=== PATIENT | female | born 1935 | race Caucasian/White ===

== ENCOUNTER → 2016-09-23 | Day surgery (SDC) | payer OTHER ==
[2016-09-03 13:06] VITALS: Ht 167.6 cm; Wt 111.4 kg
[~2016-09-23] VITALS: Ht 167.6 cm; Wt 111.4 kg
[~2016-09-23] MED LIST: 500ML BSS 0.3ML EPI 1:1000PF IRRIG ONE; ACETAMINOPHEN 325 MG TAB PO PRN; AMVISC PLUS 0.8ML SYRINGE INT OCU ONE; ATROPINE SULFATE 0.1 MG/ML 5ML SYR IV PRN; AcetaZOLAMIDE 250 MG TAB PO SCH; BETAXOLOL HCL 0.25% OP SUSP PER DROP CHARGE OPL SCH; BRIMONIDINE TART 0.2% OP SOLN PER DROP CHARGE ONE; BSS FLUSH ONE; CHOL2000 PO; CLB/200 PO; ENAL1TAB31 PO; ENDOCOAT 0.85ML SYRINGE INT OCU ONE; EpHEDrine SULFATE INJ 50 MG/ML AMP IV PRN; EpINEphrine INJ 1MG/ML AMP 1 MG/ML AMP ONE; HYDR12.55 PO; IBUP1CAP9 PO; LACTATED RINGER'S 1000ML 500 ML IV SCH; LIDOCAINE 4% OP SOLN DROP CHARGE ONE; LIDOCAINE 4% OP SOLN DROP CHARGE OPL SCH; LIDOCAINE HCL 1% MPF 2 ML VIAL ONE; MIDAZOLAM HCL 1 MG/ML 2ML VIAL ONE; MIX: 4ML BSS 1ML EPI 1:1000 PF INSTIL ONE; MOXIFLOXACIN OPH SOLN PER DROP CHARGE ONE; MULT-506 PO; MULTCAP36 PO; OCUCOAT 1 ML SOLN IO ONE; OMEG10007 PO; POVIDONE-IODINE OP SOLN 30 ML BTL ONE; PROPARACAINE 0.5% OP SOLN PER DROP CHARGE OPL SCH; TOBRAMYCIN/DEXAMETHASONE OPH OINT PER APPLN CHARGE ONE
--- NOTE | 2016-09-23 10:37 | History & Physical Bridge - SC ---
H&P Re-Evaluation Bridge Note: I have examined the patient, reviewed the History & Physical and in the interval since the performance of the History & Physical I have noted the following changes of clinical significance: No changes noted
[2016-09-23] MEDS: PHENYLEPHRINE HCL 2.5% OP SOLN PER DROP CHARGE OPL SCH ×2 (11:13→11:18)
[2016-09-23] MEDS: TROPICAMIDE 1% OP SOLN PER DROP CHARGE OPL SCH ×2 (11:14→11:19)
[2016-09-23] MEDS: CYCLOPENTOLATE HCL 1% OP SOLN PER DROP CHARGE OPL SCH ×2 (11:15→11:20)
[2016-09-23] MEDS: MOXIFLOXACIN OPH SOLN PER DROP CHARGE OPL SCH ×2 (11:16→11:33)
--- NOTE | 2016-09-23 12:00 | Discharge Instructions-SurgCtr ---
Discharge Instructions Date of Service Sep 23, 2016. Visit Reason for Visit: Cataract Left Eye Discharge Discharge Diagnosis / Problem: lens implant left eye Discharge Goals Goal(s): Improve function Activity Recommendations Activity Limitations: resume your previous activity Lifting Limitations: no more than 10 pounds Exercise/Sports Limitations: gradually increase as tolerated May Resume Sexual Activity: when tolerated Shower/Bathe: tomorrow Driving or Machine Use: resume 1 day after discharge Anesthesia . Post Anesthesia Instructions: If you have had General Anesthesia or IV Sedation: * Do not drive today. * Resume driving when surgeon permits. * Do not make important decisions or sign legal documents today. * Call surgeon for: 1. Temperature elevations greater than 101 degrees F. 2. Uncontrollable pain. 3. Excessive bleeding. 4. Persistent nausea and vomiting. 5. Medication intolerance (nausea, vomiting or rash). * For nausea and vomiting use only clear liquids such as: tea, soda, bouillon until nausea subsides, then gradually increase diet as tolerated. * If you have any concerns or questions, call your surgeon's office. If physician is unavailable and it is an emergency, call 911 or go to the nearest emergency room. . Instructions / Follow-Up Instructions / Follow-Up ACTIVITY RECOMMENDATIONS: * Light activities. * Mild irritation and blurred vision are common for the first few days. * You may walk outside, read, watch television. * Redness around the white part of the eye is common. MEDICATIONS: Resume previous medications unless instructed otherwise by your surgeon. * Take white Diamox (Acetazolamide) tablet at 3 pm today. Start all eye drops at 3 pm today: * Eye drops (today and tomorrow): Prednisone - one drop in operative eye every 3 hours while awake Ofloxacin - one drop in operative eye every 3 hours while awake SPECIAL CARE INSTRUCTIONS: * Tape plastic shield over eye to sleep at night. Call your doctor at with any concerns or problems. FOLLOW UP VISIT: Follow-up with Dr Ramírez at [facility] as scheduled. Diet Recommendations Home Diet: no limitations Procedures Procedures Performed: Left Cataract Phacoemulsification With Intraocular Lens Implant Pending Studies Studies pending at discharge: no Medical Emergencies . Who to Call and When: Medical Emergencies: If at any time you feel your situation is an emergency, please call 911 immediately. . Non-Emergent Contact Non-Emergency issues call your: Press Operator Helper Call Non-Emergent contact if: your pain is not controlled [phone] . . "Provider Documentation" section prepared by Memo Ramírez. .
--- NOTE | 2016-09-23 12:02 | [facility] Operative Report ---
Operative Report Date of Service Sep 23, 2016. Operative Report 1. PREOPERATIVE DIAGNOSIS: Senile nuclear cataract, left eye. 2. POSTOPERATIVE DIAGNOSIS: Senile nuclear cataract, left eye. 3. PROCEDURE: Phacoemulsification of left cataract with posterior chamber lens implant, type Bausch [employer] Lomb, model MX60, power +28.50 diopters. ANESTHESIA: Local standby. SURGEON: Dr. Ramírez. COMPLICATIONS: None. OPERATING TIME: 10 minutes. 4. OPERATION AND FINDINGS: DESCRIPTION OF PROCEDURE: The left pupil was dilated. The anesthetic was administered using a topical technique. The left eye was prepped and draped. A speculum was placed. A clear corneal incision was formed. The chamber was filled with Amvisc Plus and Endocoat. Epinephrine solution was used. A paracentesis was placed. A capsulorrhexis was performed. The nucleus was hydrodissected. A dense lens was removed with phacoemulsification. Time was 7.45 seconds. The aspiration unit was used to remove the cortex. The capsule was filled with Amvisc Plus. The lens implant was folded and placed into the capsule. The incision was hydrated. The Amvisc was aspirated. The wound was secure. The chamber was deep. The pupil was round. Brimonidine, TobraDex ointment and Vigamox solution were placed. The speculum was removed. The patient was returned to the Recovery Room in stable condition. I attest to the content of the Intraoperative Record and any orders documented therein. Any exceptions are noted below. The scribe's documentation has been prepared in my presence, under my direction and personally reviewed by me in its entirety. I confirm that the note above accurately reflects all work, treatment, procedures, and medical decision making performed by me. I personally scribed for Memo Ramíerz M.D. ([email or web address]) on 09/23/16 at 12:02. Electronically submitted by Karli Carlton ([facility]).
--- NOTE | 2016-09-23 12:28 | Anesthesia Progress Nt - [facility] ---
Anesthesia Post Op Note Date & Time Sep 23, 2016 at 12:28 Vital Signs Pain Intensity: 0 Vital Signs Past 12 Hours Date Time Temp Pulse Resp B/P (MAP) Pulse Ox O2 Delivery O2 Flow Rate FiO2 09/23/16 12:04 36.3 45 16 151/54 (86) 96 Room Air 09/23/16 11:00 37.0 58 22 173/84 (113) 98 Notes Mental Status: alert / awake / arousable, participated in evaluation Pt Amnestic to Procedure: Yes Nausea / Vomiting: adequately controlled Pain: adequately controlled Airway Patency, RR, SpO2: stable & adequate BP & HR: stable & adequate Hydration State: stable & adequate Anesthetic Complications: no major complications apparent
[2016-09-23 12:35] VITALS: BP 177/85; PULSE 55; O2SAT 96
== END | disposition home or self-care (01) ==
LOC: X.SURG 10:29
PROVIDERS: ATTEND Specialist
DX: H25.12 Age-related nuclear cataract, left eye (principal); I10 Essential (primary) hypertension; G47.33 Obstructive sleep apnea (adult) (pediatric); M19.90 Unspecified osteoarthritis, unspecified site; E66.9 Obesity, unspecified; Z90.49 Acquired absence of other specified parts of digestive tract; Z96.653 Presence of artificial knee joint, bilateral; Z90.89 Acquired absence of other organs; Z87.442 Personal history of urinary calculi; Z85.820 Personal history of malignant melanoma of skin

== ENCOUNTER 2018-09-14 10:52 | Observation (INO) ==
[~2018-09-14 10:52] MED LIST changes: -500ML BSS 0.3ML EPI 1:1000PF IRRIG ONE; -ACETAMINOPHEN 325 MG TAB PO PRN; -AMVISC PLUS 0.8ML SYRINGE INT OCU ONE; -ATROPINE SULFATE 0.1 MG/ML 5ML SYR IV PRN; -AcetaZOLAMIDE 250 MG TAB PO SCH; -BETAXOLOL HCL 0.25% OP SUSP PER DROP CHARGE OPL SCH; -BRIMONIDINE TART 0.2% OP SOLN PER DROP CHARGE ONE; -BSS FLUSH ONE; -CHOL2000 PO; -CLB/200 PO; +CLINDAMYCIN 600 MG/54 ML BAG IV SCH; -ENAL1TAB31 PO; -ENDOCOAT 0.85ML SYRINGE INT OCU ONE; -EpHEDrine SULFATE INJ 50 MG/ML AMP IV PRN; -EpINEphrine INJ 1MG/ML AMP 1 MG/ML AMP ONE; -HYDR12.55 PO; -IBUP1CAP9 PO; -LACTATED RINGER'S 1000ML 500 ML IV SCH; -LIDOCAINE 4% OP SOLN DROP CHARGE ONE; -LIDOCAINE 4% OP SOLN DROP CHARGE OPL SCH; -LIDOCAINE HCL 1% MPF 2 ML VIAL ONE; +LR 15ML/HR IV SCH; -MIDAZOLAM HCL 1 MG/ML 2ML VIAL ONE; -MIX: 4ML BSS 1ML EPI 1:1000 PF INSTIL ONE; -MOXIFLOXACIN OPH SOLN PER DROP CHARGE ONE; -MULT-506 PO; -MULTCAP36 PO; -OCUCOAT 1 ML SOLN IO ONE; -OMEG10007 PO; -POVIDONE-IODINE OP SOLN 30 ML BTL ONE; -PROPARACAINE 0.5% OP SOLN PER DROP CHARGE OPL SCH; -TOBRAMYCIN/DEXAMETHASONE OPH OINT PER APPLN CHARGE ONE
--- NOTE | 2018-09-14 11:39 | History & Physical Bridge Note ---
Date of Service September 14, 2018 History & Physical Bridge Note I have examined the patient, reviewed the History & Physical and in the interval since the performance of the History & Physical I have noted the following changes of clinical significance: no changes noted
--- NOTE | 2018-09-14 11:40 | Pre Anesthesia Assessment ---
Date of Service September 14, 2018 Pre Sedation Assessment Cardiovascular RRR, no murmur, no edema Respiratory normal respiratory effort, lungs clear to auscultation Pre-Sedation Airway Assessment Smoking Status: Never smoker Hx Sleep Apnea: No Hx Difficult Intubation: No Short, Thick Neck: No Thyromental Distance: < 3.5 Finger Breadths Mallampati Class: II ASA: ASA3 NPO Status Date of Last Intake of Fluids: 09/13/18 Date of Last Intake of Solid Food: 09/13/18 Procedure Planning Contraindications for Sedation: none Current Medications Reviewed: Yes Notes The planned sedation has been discussed with the patient. Informed Consent was obtained. I have identified the patient, determined the appropriateness of sedation and have assessed the patient immediately prior to the procedure. All medicine(s) and interventions are by my order.
[2018-09-14] MEDS ORDERED: BACITRACIN INJ 50,000 UNIT VIAL ONE (15:09)
[2018-09-14] MEDS ORDERED: BUPIVACAINE 0.5 % 5 MG/1 ML PF 10ML VIAL ONE (15:09)
[2018-09-14] MEDS ORDERED: LIDOCAINE HCL 1% 20 ML VIAL ONE (15:09)
[2018-09-14] MEDS ORDERED: MIDAZOLAM HCL 5 MG/ML 1 ML VIAL ONE (15:09)
[2018-09-14] MEDS ORDERED: fentaNYL citrate 100 MCG/2 ML VIAL ONE (15:09)
--- NOTE | 2018-09-14 16:14 | Operative Report ---
Post Operative Report Pre & Post Diagnosis Pre: TBS Post: Same Operation Date: 09/14/18 13:00 <No data on this case meets the specified criteria> Procedure Operation Date: 09/14/18 13:00 Actual Procedures p Pacer with A/V Leads (Dual)(Left) - Estelle Ramírez DO s Venogram, Unilateral(Not Applicable) - Estelle Ramírez DO Surgeon Estelle Ramírez DO Surgical Instrument Repair Specialist none Estimated Blood Loss 25 Findings Consistent with Post-Op Diagnosis Specimens none Description of Procedure see official report I attest to the content of the Intraoperative Record and any orders documented therein. Any exceptions are noted below.
--- NOTE | 2018-09-14 16:15 | Post Anesthesia Assessment ---
Date of Service September 14, 2018 Post Sedation Assessment Vital Signs Temp Pulse Resp BP Pulse Ox 09/14/18 12:04 36.5 C 70 20 123/70 94 Recovery Score Activity: Moves 4 extremities Respiration: Deep Breath/Cough Circulation: +/-20% PreAnes Value Consciousness: Fully Awake Oxygen Saturation: > 92% On Room Air Discharge Sedation Level of Care: Fast Track Phase II Post Sedation Plan On clinical assessment, the patient appears to have tolerated the sedation without complications. Patient is recovering as anticipated. Patient will continue to be monitored by nursing and may be discharged when sedation discharge criteria are met per below protocol. Upon Completions of procedure and additional 15 minutes continue every 5 minute vital signs and the P.A.R. score; then discharge to a Phase I or Fast Track to Phase II per the following guidelines: * Discharge Patient to appropriate Phase II area if PAR is 8 or greater or return to pre- procedure baseline. The post - procedure orders will be as directed. * If PAR score is less than 8 or not return to pre-procedure baseline then patient will follow Phase I monitoring till PAR is reached for Phase II. The Phase I may be done in procedure room or may call to secure a Phase I area. * If naloxone or flumazenil are used for reversal, hold in Phase I for continued monitoring from when last reversal dose was given for a minimum of 60 minutes or longer pending the nurse and/or physician discretion of patient condition before discharge to Phase II. Please call the Sedation Physician to re-evaluate and complete post-note for discharge to Phase II area. Do NOT discharge from procedure sedation or Phase 1 until post- sedation evaluation note is complete by procedure /sedation MD Sedation Discharge Instructions to be given to the patient at discharge to home.
[2018-09-14] MEDS ORDERED: ACETAMINOPHEN 325 MG TAB PO PRN (16:16)
[2018-09-14] MEDS ORDERED: ACETAMINOPHEN 500 MG TAB PO PRN (16:17)
[2018-09-14 17:06] LABS: Hematocrit (blood only) 41.4 % (37-47); Hemoglobin 13.5 g/dL (12.0-16.0); Mean Corpuscular Hgb Conc 32.6 g/dL (32-36); Mean Corpuscular Volume 90.8 fL (80-100); Mean Platelet Volume 10.1 fL (7.4-10.4); Platelet Count 223 K/uL (130-400); RDW Coefficient of Variation 15.8 % (11.5-14.5); RDW Standard Deviation 52.3 fL (36.4-46.3); Red Blood Count 4.56 M/uL (4.2-5.4); White Blood Count 5.76 K/uL (4.8-10.8)
[2018-09-14] MEDS: OXYCODONE/ACETAMINOPHEN 5mg/325mg TAB PO PRN ×2 (17:24→23:34)
[2018-09-14 17:38] LABS: Creatinine Clr Calc Pharmacy 64.7 ml/min; Est GFR (African American) 74.5; Est GFR (Non-African American) 64.3
[2018-09-14 17:41] LABS: Bilirubin Direct 0.2 mg/dl (0-0.2)
[2018-09-14] MEDS: METOPROLOL SUCC 25MG EXT REL TAB PO SCH (18:19)
[2018-09-14] MEDS: OMEGA-3 (PURIFIED FISH OIL) 1 GM CAP PO SCH (20:58)
[2018-09-14] MEDS: ENALAPRIL MALEATE 10 MG TAB PO SCH (20:59)
[2018-09-15] MEDS: OMEGA-3 (PURIFIED FISH OIL) 1 GM CAP PO SCH (08:13)
[2018-09-15] MEDS: METOPROLOL SUCC 25MG EXT REL TAB PO SCH (08:13)
[2018-09-15] MEDS: OXYCODONE/ACETAMINOPHEN 5mg/325mg TAB PO PRN (08:13)
[2018-09-15] MEDS: ENALAPRIL MALEATE 10 MG TAB PO SCH (08:13)
[2018-09-15] MEDS ORDERED: APIXABAN 5 MG TABLET PO SCH (09:00)
[2018-09-15] MEDS ORDERED: MULTIVITAMIN TAB PO SCH (09:00)
[2018-09-15] MEDS ORDERED: CeleBREX 200 MG CAP PO SCH (09:00)
[2018-09-15] MEDS ORDERED: hydroCHLOROthiazide 25 MG TAB PO SCH (09:00)
[2018-09-15] MEDS ORDERED: CHOLECALCIFEROL 1,000 UNITS TAB PO SCH (09:00)
--- NOTE | 2018-09-15 09:13 | XRay Report ---
XR chest 2V routine CLINICAL HISTORY: 83 years-old Female presenting with post implant. TECHNIQUE: PA and lateral views of the chest were obtained. COMPARISON: 01/11/2016. FINDINGS: Interval placement of a left subclavian pacer with leads in the right atrium and right ventricular ap ex. No retained surgical material. Leads are appropriately positioned. Atherosclerosis of the aortic arch. Cardiac silhouette enlarged. Mild pulmonary vascular prominence. Diffusely coarsened lung adolfo ngs. No focal lung opacity. No pleural effusion or pneumothorax. Osteopenia suspected. Moderate to se theo compression deformity at the thoracolumbar junction. Suspected anterior dislocation of the right humeral head, which may be chronic. Advanced degenerative changes of the left glenohumeral joint. Hi atal hernia. IMPRESSION: 1. Appropriately positioned left subclavian 2-lead pacer. No pneumothorax. 2. Cardiomegaly. 3. 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 Correlate clinically. 4. Moderate to severe compression fracture of one of the vertebral body levels at the thoracolumbar junction. Correlate clinically for point tenderness as this is age-indeterminate. 5. Hiatal hernia. Electronically signed by: Alberto Ware M.D. 09/15/2018 9:12 AM
--- NOTE | 2018-09-24 05:48 | Operative Report ---
DATE OF OPERATION: 09/14/2018 DATE OF PROCEDURE: 09/14/2018 PREOPERATIVE DIAGNOSIS: Tachybrady syndrome. POSTOPERATIVE DIAGNOSIS: Tachybrady syndrome. PROCEDURE: Dual chamber rate responsive permanent pacemaker under fluoroscopic guidance along with peripheral venogram. SURGEON: Estelle Ramírez DO ASSISTANTS: None. ANESTHESIA: Monitored conscious sedation administered under my supervision by Evelyn Wasserman. Start time 1508 and end time 1607. A total of 4 mg of Versed, 100 mcg of fentanyl. INTRAVENOUS FLUIDS: 67 mL during the procedure, but she got 450 mL in p.m., same day surgery. ANTIBIOTICS: 600 mg of clindamycin. BLOOD LOSS: 20 mL. URINE OUTPUT: Not applicable. SPECIMENS: None. FINDINGS: See below. DRAINS: None. INDICATIONS: This is an 83-year-old female with past medical history for paroxysmal atrial fibrillation diagnosed 06/2018 s/p LEONORA guided DCCV on eliquis, HTN, NAIN on CPAP, Morbid obesity. Pt with evidence for TBS so recommended a dual chamber pacemaker. CONSENT: Consent was obtained prior to the patient going into electrophysiology lab. The patient was informed of the risks, benefits and alternative of the procedure. Risks include but not limited to sudden cardiac , cardiac arrhythmias, cerebrovascular accident, myocardial infarction, injury to the blood vessels, chamber of the heart, lung, bleeding, and infection. The patient understood these risks and agreed to the procedure as planned. Informed consent was obtained. DESCRIPTION OF THE PROCEDURE: The patient was brought into electrophysiology lab in a fasting state. A timeout was performed to ensure patient identity and procedure correctly. She received prophylactic antibiotics prior to incision. She was prepped and draped over the left infraclavicular space in normal surgical standard fashion. Monitored conscious sedation was given throughout the procedure for patient's comfort level. [place] precautions were maintained throughout the procedure. A 10 mL of 1% lidocaine, bupivacaine mixture were given in the left deltopectoral groove. Incision was made in left deltopectoral groove. Blunt dissection was performed down to identify the cephalic vein; however, none could be identified, so peripheral venogram using 10 mL of IV contrast balloon with 10 mL of saline followed by a 20 mL flush was performed to identify the axillary vein and venous access was obtained through an axillary stick. A guidewire was inserted without any resistance. An 8-Algerian sheath was inserted over the guidewire without any resistance. Dilator was removed and a second guidewire was inserted through the 8-Algerian sheath to allow for retained venous access. Sheath was removed, flushed and reinserted over the dilator and then it was reinserted over one of the guidewires. The guidewire and dilator were removed. Then, the right ventricular lead was advanced into right ventricle and positioned in intraventricular apex under fluoroscopic guidance. There was adequate pacing and sensing thresholds and no diaphragmatic stimulation with high output pacing. The 8-Algerian sheath was peeled away and lead was fixated to pectoralis muscle using 0 silk suture. A second 8-Algerian sheath was inserted over the retained guidewire without any resistance. The guidewire and dilator were removed. The right atrial lead was then advanced into right atrium and positioned interatrial appendage under fluoroscopic guidance. There was adequate sensing of the fib waves and no diaphragmatic stimulation with high output pacing. The 8-Algerian sheath was peeled away and lead was fixated to pectoralis muscle using 0 silk suture. There was bleeding from the venous access site, so a pursestring using a 2-[address] needle was placed. Then using blunt dissection over the pectoralis muscle within the pectoralis fascia, a pacemaker pocket was created. The pocket was flushed with copious amounts of bacitracin saline wash and inspected for hemostasis. The pulse generator was then attached to the leads, making sure that the pins were in appropriate position, passed set screws and set screws were tightened. Pulse generator was then placed in the Tyrx pouch followed then by being placed in the pocket, making sure that the leads were lying flat beneath the device. A stay stitch using 0 silk suture was used to secure this pectoralis muscle. Eduardo stat was placed in the pocket as patient is going back on Coumadin. Then the incision was closed in 3-layer fashion with 2-0 Vicryl interrupted suture followed by 3-0 Vicryl interrupted suture followed by a 4-0 Monocryl running stitch and Dermabond was applied followed then by a pressure dressing. EQUIPMENT: 1. Pulse generator is a Medtronic Nicole XT DR DAVIE Araiza [id number], serial #[id number]. 2. Tyrx pouch reference CMR M6122, lot #[id number], expiration 09/28/2018. 3. Right atrial lead, Medtronic 5076-52 cm, serial #[id number]. 4. Right ventricular lead, Medtronic 5076-58 cm, serial #[id number]. INTRAOPERATIVE TESTIN. Right atrial lead, fib waves 0.9 millivolts, impedance 570 ohms, threshold is not performed as the patient is in AFib. 2. Right ventricular lead: R-waves 8 millivolts, impedance 836 ohms, threshold 0.4 volts at 0.4 milliamps. FINAL PARAMETERS THROUGH THE DEVICE: 1. Right atrial lead: Fib waves 0.9 millivolts, impedance 551 ohms, again no threshold testing as patient is in AFib. 2. Right ventricular lead: R-wave 5.9 millivolts, impedance 836 ohms, threshold 0.5 volts at 0.4 milliseconds. FINAL PARAMETERS: 1. MVP-R 60/130, right atrial amplitude 1.5 volts, pulse width 0.4 milliseconds, sensitivity 0.15 millivolts. 2. Right ventricular amplitude 3.5 volts, pulse width 0.4 milliseconds, sensitivity 1.2 millivolts. IMPRESSION: Successful implantation of a dual chamber rate responsive permanent pacemaker under fluoroscopic guidance with peripheral venogram secondary to tachybrady syndrome. PLAN: Monitor patient overnight, 12-lead ECG, chest x-ray. She is not allowed to lift left elbow or left shoulder for 1 month. She cannot lift more than 10 pounds with the left arm for 2 weeks. She can shower in 2 days, let water run over incision, do not scrub it. She should follow up in our [facility] on Wednesday09/23/2018 for device and wound check. She can restart her anticoagulation. I attest to the content of the Intraoperative Record and any orders documented therein. Any exceptions are noted below. STANLEY
--- NOTE | 2018-09-27 22:18 | Discharge Summary ---
Date of Service September 15, 2018 Admission HPI Per Admitting Provider Pt admitted for ppm due to TBS Admission Exam Per Admitting Provider aaox3, NAD NC/AT, EOMI Supple No JVD Nrl S1/S2, No murmur CTA b/l no w/r/r soft nt/nd no LE edema b/l skin intact no focal deficits Principal Diagnosis TBS s/p dual chamber ppm Discharge Exam aaox3, NAD NC/AT, EOMI Supple No JVD Nrl S1/S2, No murmur CTA b/l no w/r/r soft nt/nd no LE edema b/l skin intact no focal deficits left pectoral incision intact, no hematoma mild ecchymosis Discharge Data Allergies Allergy/AdvReac Type Severity Reaction Status Date / Time amoxicillin Allergy Unknown RASH Verified 09/14/18 11:44 meloxicam Allergy Unknown HIVES Verified 09/14/18 11:44 amlodipine AdvReac Unknown BLE Verified 09/14/18 11:44 SWELLING alendronate sodium AdvReac Verified 09/14/18 12:32 [From Fosamax] Procedures Performed Operation Date: 09/14/18 13:00 Actual Procedures p Pacer with A/V Leads (Dual)(Left) - Estelle Ramírez DO s Venogram, Unilateral(Not Applicable) - Estelle Ramírez DO Ordered Studies CXR: No PTX, leads in place ECG: FIBERGLASS SKI MAKER PPM Interrogation: Normal function; lead testing stable from implant 09/14/18 07:30 EP Lab Images for PACS ONCE Hospital Course (1) Tachy-yovani syndrome: Total Time Total Time Spent Total Time Spent (In Minutes): 30 Total Time Includes: Examination of the Patient, Discharge Planning, Medication Reconciliation and Other Discharge Plan Discharge Items Patient Disposition: Home - Self-Care Reason For Visit: DUAL CHAMBER PACEMAKER Discharge Diagnosis: TBS s/p ppm Condition: Good Discharge Goals: Improve function Activity: As commented below Activity Comment: do not lift the left elbow over the left shoulder for 1 month Lifting: No more than 5 pounds and No more than 10 pounds Lifting Comment: do not lift more than 10 pounds with the left arm for 2 weeks Bathing: Keep incision dry Bathing Comment: can shower tomorrow 09/16 let water run over the incision do not scrub it Sexual Activity: After two weeks Driving/Machine Use: Resume 1 day after discharge Non-emergency contact: Insurance Sales Associate Call non-emergency contact if: you have any medication questions Follow-up/Referrals: Zbigniew Browning MD [Primary Care Provider] - Diet: Heart Healthy Addtl Provider Instructions: Device and wound check at [facility] on 09/23 if you notice any swelling at the site call my office immediately Prescriptions: New metoprolol succinate 25 mg Tablet Extended Release 24 Hr 25 mg PO QAM Qty: 30 RF: 0 Continued enalapril maleate [Vasotec] 20 mg Tablet 1 tab PO BID Qty: 0 RF: 0 PreserVision Lutein 226 mg-200 unit -5 mg-0.8 mg Capsule 1 tab PO BID Qty: 0 RF: 0 omega 7-esf-fop-fish oil [Fish Oil] 1,000 mg (120 mg-180 mg) Capsule 1 cap PO TID Qty: 0 RF: 0 multivitamin tablet 1 tab PO QAM Qty: 0 RF: 0 celecoxib [Celebrex] 200 mg Capsule 200 mg PO QAM Qty: 0 RF: 0 hydrochlorothiazide 12.5 mg Capsule 1 tab PO QAM Qty: 0 RF: 0 cholecalciferol (vitamin D3) [Vitamin D3] 2,000 unit Capsule 1 cap PO QAM Qty: 0 RF: 0 acetaminophen [Tylenol Extra Strength] 500 mg Tablet 500 mg PO QID PRN (Reason: Pain) RF: 0 Eliquis 5 mg Tablet 5 mg PO BID RF: 0 Stand-Alone Forms: [facility] Discharge Orders: Discharge Order (Routine); Ordered 09/15/18 Ordered By: Estelle Ramírez Admission Data Admit Date/Time: 09/14/18 15:44 Attending Provider: Estelle Ramírez Admit Provider: Estelle Ramírez Primary Care Provider: Zbigniew Browning Service: Telemetry Other Interventions: Discharge Summary Assessment (RN) Last Done: 09/15/18 11:56 Discharge Summary Assessment (RN) Last Done: 09/15/18 11:56 DC Date/Time DO NOT enter until pt leaves facility: 09/15/18 12:52
== END 2018-09-15 12:52 | disposition home or self-care (01) ==
LOC: EP 10:52 → 2S 10:52